=== PATIENT | female | born 1995 | race Two or more races ===

== ENCOUNTER 2018-06-04 09:40 | Emergency (ER) | payer SELFPAY ==
[~2018-06-04] VITALS: Ht 160 cm; Wt 72.6 kg
[2018-06-04] MEDS ORDERED: HYOSCYAMINE 0.125 MG TAB.RAPDIS PO ONE (10:30)
[2018-06-04] MEDS ORDERED: MORPHINE SULFATE 2 MG/ML VIAL. IV/SQ PRN (10:30)
[2018-06-04] MEDS ORDERED: ONDANSETRON PF 4 MG/2 ML VIAL. IV ONE (10:30)
[2018-06-04 10:35] LABS: BASO # 0.1 x10^3/uL (0.0-0.2); BASO % 0 % (0-3); EOS % 0 % (0-3); HEMATOCRIT 36.3 % (36.0-47.0); HEMOGLOBIN 12.3 g/dL (12.0-15.5); LYMPH # 0.8 x10^3/uL (1.0-4.8); LYMPH % 4 % (24-48); MEAN CORPUSCULAR HEMOGLOBIN 31 pg (25-35); MEAN CORPUSCULAR HGB CONC 34 g/dL (31-37); MEAN CORPUSCULAR VOLUME 91 fL (79-100); MONO # 0.6 x10^3/uL (0.0-1.1); MONO % 3 % (0-9); NEUT # 20.4 x10^3uL (1.8-7.7); NEUT % 93 % (31-73); PLATELET COUNT 192 x10^3/uL (140-400); RED CELL DISTRIBUTION WIDTH 13.8 % (11.5-14.5); WHITE BLOOD COUNT 21.9 x10^3/uL (4.0-11.0)
[2018-06-04 10:37] LABS: BILIRUBIN,URINE NEGATIVE (NEG); CLARITY,URINE CLEAR; COLOR,URINE YELLOW; NITRITE,URINE NEGATIVE (NEG); PROTEIN,URINE 30 mg/dL (NEG-TRACE)
[2018-06-04 10:44] LABS: CALCIUM 9.2 mg/dL (8.5-10.1); CREATININE 0.8 mg/dL (0.6-1.0); GFR 91.4; POTASSIUM 3.4 mmol/L (3.5-5.1)
[2018-06-04 10:50] LABS: ALBUMIN 3.8 g/dL (3.4-5.0); TOTAL BILIRUBIN 0.7 mg/dL (0.2-1.0); TOTAL PROTEIN 7.8 g/dL (6.4-8.2)
[2018-06-04] MEDS ORDERED: IOHEXOL 300 MG/ML 100ML VIAL. IV ONE (11:00)
[2018-06-04] MEDS ORDERED: CONTRAST GIVEN. MC PRN (11:00)
[2018-06-04 11:08] LABS: BACTERIA,URINE FEW /HPF (0-FEW)
--- NOTE | 2018-06-04 11:24 | PHYS DOC ---
Past Medical History Past Medical History: No Pertinent History Past Surgical History: No Surgical History Alcohol Use: None Drug Use: None Adult General Chief Complaint Chief Complaint: ABDOMINAL PAIN HPI HPI Patient is a 22 year old female who presents with abdominal pain. Pain started yesterday as periumbilical and has remained primarily they are however there is some right lower quadrant pain as well. Patient had some nausea and vomiting early on in the course, and has no appetite currently. Patient reports increased pain with bumps on the car ride to the hospital today. Patient is taken no pain medicines. Patient denies any dysuria or hematuria. Denies any back or flank pain. [] Review of Systems Review of Systems Constitutional: Denies fever or chills [] Eyes: Denies change in visual acuity, redness, or eye pain [] HENT: Denies nasal congestion or sore throat [] Respiratory: Denies cough or shortness of breath [] Cardiovascular: No chest pain or palpitations[] GI: See history of present illness[] : Denies dysuria or hematuria [] Musculoskeletal: Denies back pain or joint pain [] Integument: Denies rash or skin lesions [] Neurologic: Denies headache, focal weakness or sensory changes [] Endocrine: Denies polyuria or polydipsia [] All other systems were reviewed and found to be within normal limits, except as documented in this note. Current Medications Current Medications Current Medications Medications (Trade) Dose Ordered Sig/Karoline Start Time Stop Time Status Last Admin Dose Admin Ceftriaxone Sodium 50 ml @ 100 mls/hr 1X ONCE 06/04/18 12:00 06/04/18 12:29 06/04/18 12:04 100 MLS/HR Hyoscyamine (Anaspaz) 0.125 mg ONCE ONCE 06/04/18 10:30 06/04/18 10:35 DC 06/04/18 11:20 0.125 MG Info (CONTRAST GIVEN -- Rx MONITORING) 1 each PRN DAILY PRN 06/04/18 11:06/06/18 10:59 Iohexol (Omnipaque 300 Mg/ml) 75 ml 1X ONCE 06/04/18 11:00 06/04/18 11:01 DC 06/04/18 11:07 75 ML Morphine Sulfate (Morphine Sulfate) 2 mg PRN Q15MIN PRN 06/04/18 10:30 06/05/18 10:29 06/04/18 10:42 2 MG Ondansetron HCl (Zofran) 4 mg 1X ONCE 06/04/18 10:30 06/04/18 10:34 DC 06/04/18 10:41 4 MG Sodium Chloride 1,000 ml @ 1,000 mls/hr 1X ONCE 06/04/18 12:00 06/04/18 12:59 Allergies Allergies Allergies Coded Allergies Type Severity Reaction Last Updated Verified No Known Drug Allergies 06/04/18 No Physical Exam Physical Exam Constitutional: Well developed, well nourished, mild discomfort, non-toxic appearance. [] HENT: Normocephalic, atraumatic, bilateral external ears normal, oropharynx moist, no oral exudates, nose normal. [] Eyes: PERRLA, EOMI, conjunctiva normal, no discharge. [] Neck: Normal range of motion, no tenderness, supple, no stridor. [] Cardiovascular:Heart rate regular rhythm, no murmur [] Lungs & Thorax: Bilateral breath sounds clear to auscultation [] Abdomen: Bowel sounds normal, soft, periumbilical tenderness and right lower quadrant tenderness, mild tenderness left lower quadrant, no masses, no pulsatile masses. [] Skin: Warm, dry, no erythema, no rash. [] Back: No tenderness, no CVA tenderness. [] Extremities: No tenderness, no cyanosis, no clubbing, ROM intact, no edema. [] Neurologic: Alert and oriented X 3, normal motor function, normal sensory function, no focal deficits noted. [] Psychologic: Affect normal, judgement normal, mood normal. [] Current Patient Data Vital Signs Vital Signs Date Time Temp Pulse Resp B/P (MAP) Pulse Ox O2 Delivery O2 Flow Rate FiO2 06/04/18 10:54 111 20 113/59 (77) 100 06/04/18 10:00 99.7 Room Air 99.7 Lab Values Laboratory Tests Test 06/04/18 09:55 06/04/18 09:57 06/04/18 10:10 Urine Collection Type Unknown Urine Color Yellow Urine Clarity Clear Urine pH 6.0 Urine Specific [place] 1.025 Urine Protein 30 mg/dL (NEG-TRACE) Urine Glucose (UA) Negative mg/dL (NEG) Urine Ketones (Stick) >=80 mg/dL (NEG) Urine Blood Trace (NEG) Urine Nitrite Negative (NEG) Urine Bilirubin Negative (NEG) Urine Urobilinogen Dipstick 1.0 mg/dL (0.2 mg/dL) Urine Leukocyte Esterase Large (NEG) Urine RBC 1-2 /HPF (0-2) Urine WBC 11-20 /HPF (0-4) Urine Bacteria Few /HPF (0-FEW) Urine Mucus Mod /LPF POC Urine HCG, Qualitative Hcg negative (Negative) White Blood Count 21.9 x10^3/uL (4.0-11.0) H Red Blood Count 4.00 x10^6/uL (3.50-5.40) Hemoglobin 12.3 g/dL (12.0-15.5) Hematocrit 36.3 % (36.0-47.0) Mean Corpuscular Volume 91 fL (79-100) Mean Corpuscular Hemoglobin 31 pg (25-35) Mean Corpuscular Hemoglobin Concent 34 g/dL (31-37) Red Cell Distribution Width 13.8 % (11.5-14.5) Platelet Count 192 x10^3/uL (140-400) Neutrophils (%) (Auto) 93 % (31-73) H Lymphocytes (%) (Auto) 4 % (24-48) L Monocytes (%) (Auto) 3 % (0-9) Eosinophils (%) (Auto) 0 % (0-3) Basophils (%) (Auto) 0 % (0-3) Neutrophils # (Auto) 20.4 x10^3uL (1.8-7.7) H Lymphocytes # (Auto) 0.8 x10^3/uL (1.0-4.8) L Monocytes # (Auto) 0.6 x10^3/uL (0.0-1.1) Eosinophils # (Auto) 0.0 x10^3/uL (0.0-0.7) Basophils # (Auto) 0.1 x10^3/uL (0.0-0.2) Segmented Neutrophils % 91 % (35-66) H Band Neutrophils % 5 % (0-9) Lymphocytes % 1 % (24-48) L Monocytes % 3 % (0-10) Platelet Estimate Adequate (ADEQUATE) Sodium Level 138 mmol/L (136-145) Potassium Level 3.4 mmol/L (3.5-5.1) L Chloride Level 102 mmol/L (98-107) Carbon Dioxide Level 24 mmol/L (21-32) Anion Gap 12 (6-14) Blood Urea Nitrogen 9 mg/dL (7-20) Creatinine 0.8 mg/dL (0.6-1.0) Estimated GFR (Cockcroft-Gault) 91.4 BUN/Creatinine Ratio 11 (6-20) Glucose Level 111 mg/dL (70-99) H Calcium Level 9.2 mg/dL (8.5-10.1) Total Bilirubin 0.7 mg/dL (0.2-1.0) Aspartate Amino Transferase (AST) 13 U/L (15-37) L Alanine Aminotransferase (ALT) 14 U/L (14-59) Alkaline Phosphatase 74 U/L (46-116) Total Protein 7.8 g/dL (6.4-8.2) Albumin 3.8 g/dL (3.4-5.0) Albumin/Globulin Ratio 1.0 (1.0-1.7) Lipase 87 U/L (73-393) Laboratory Tests 06/04/18 10:10 Laboratory Tests 06/04/18 10:10 EKG EKG [] Radiology/Procedures Radiology/Procedures CT scan the abdomen and pelvis does not show any acute abnormalities.[] Course & Med Decision Making Course & Med Decision Making Pertinent Labs and Imaging studies reviewed. (See chart for details) Medical decision making: No evidence of appendicitis or intra-abdominal significant pathology. Patient appears to have urinary tract infection and is receiving IV fluids as well as initial dose of IV antibiotics. We'll transition her to oral outpatient medication. Patient was informed of the lab and CT findings and voiced understanding. All questions were answered. Patient was discharged in improved condition.[] Dragon Disclaimer Dragon Disclaimer This electronic medical record was generated, in whole or in part, using a voice recognition dictation system. Departure Departure Impression: Primary Impression: Urinary tract infection Additional Impressions: Abdominal pain Vomiting Disposition: HOME, SELF-CARE Condition: GOOD Referrals: NO PCP (PCP) Patient Instructions: Abdominal Pain, Nausea and Vomiting, Urinary Tract Infection Additional Instructions: Drink plenty of fluids. Frequent small sips. Follow-up with your regular doctor in 2 days. If you do not have a regular doctor a list of low-cost clinics is being provided. Eat a carbohydrate rich diet for the next 2 days, foods such as bananas, rice, applesauce, and toast fall into that category. Avoid fatty foods , milk, and pepper. Return to the ER if unable to tolerate liquids, worsening pain, or any other concerns. Scripts Tramadol Hcl (TRAMADOL HCL) 50 Mg Tablet 50 MG PO Q6HRS PRN for PAIN, #20 TAB Prov: MANAV LYNN DO 06/04/18 Metoclopramide Hcl (REGLAN) 10 Mg Tablet 10 MG PO QIDACHS, #30 TAB 0 Refills Prov: MANAV LYNN DO 06/04/18 Cephalexin (CEPHALEXIN) 500 Mg Tablet 1 TAB PO TID, #30 TAB Prov: MANAV LYNN DO 06/04/18 Problem Qualifiers Primary Impression: Urinary tract infection Urinary tract infection type: site unspecified Hematuria presence: without hematuria Qualified Codes: N39.0 - Urinary tract infection, site not specified Additional Impressions: Abdominal pain Abdominal location: periumbilical Qualified Codes: R10.33 - Periumbilical pain Vomiting Vomiting type: unspecified Vomiting Intractability: non-intractable Nausea presence: with nausea Qualified Codes: R11.2 - Nausea with vomiting, unspecified MANAV LYNN DO Jun 04, 2018 11:24
[2018-06-04 11:33] LABS: % BANDS 5 % (0-9); % LYMPHS 1 % (24-48); % MONOS 3 % (0-10); % SEGS 91 % (35-66)
[2018-06-04 11:34] LABS: PLT ESTIMATE ADEQUATE (ADEQUATE)
--- NOTE | 2018-06-04 11:35 | RAD ---
CT abdomen and pelvis with contrast 06/04/2018 CLINICAL INDICATION: Bilateral lower abdominal pain. COMPARISON: None. TECHNIQUE: Multiple CT images of the abdomen and pelvis were obtained following the intravenous ministration of 75 mL Omnipaque 300. *One or more of the following individualized dose reduction techniques were utilized for this examination: 1. Automated exposure control. 2. Adjustment of the mA and/or kV according to patient size. 3. Use of iterative reconstruction technique. FINDINGS: Heart size unremarkable. Visualized lung bases are clear. Liver, gallbladder, spleen, adrenal glands, pancreas and kidneys are unremarkable. Abdominal aorta normal in caliber. No retroperitoneal or mesenteric lymphadenopathy. Small and large bowel loops are normal in caliber without obstruction. Appendix is not discretely identified, however no secondary findings of appendicitis of the base of the cecum. Urinary bladder, uterus, and adnexa are unremarkable. No iliac or inguinal lymphadenopathy. There are no destructive osseous lesions. IMPRESSION: No CT evidence of acute abdominal or pelvic process. Electronically signed by: Alberto Santos MD (06/04/2018 11:32 AM) [facility]
[2018-06-04] MEDS ORDERED: IV NORMAL SALINE 1000ML BAG 1,000 ML IV ONE (12:00)
[2018-06-04] MEDS ORDERED: TRAM50TA PO (12:14)
[2018-06-04] MEDS ORDERED: CEPH500T PO (12:14)
[2018-06-04] MEDS ORDERED: METO10TA81 PO (12:14)
[2018-06-04 12:23] VITALS: BP 104/58
== END 2018-06-04 13:00 | disposition home or self-care (01) ==
LOC: ER 09:40
DX: N39.0 Urinary tract infection, site not specified (principal); R11.2 Nausea with vomiting, unspecified
CPT/HCPCS: 36415; 74177; 80053; 81001; 81025; 83690; 85007; 85025; 96365; 96375; 99284; J0690; J2270; J2405; J7030; Q9967